=== PATIENT | female | born 1985 | race American Indian/Alaskan Native ===

== ENCOUNTER 2016-04-24 14:22 | Emergency (ER) | payer OTHER ==
[2016-04-24 14:58] VITALS: TEMP 98.2
[2016-04-24] MEDS ORDERED: Sodium Chloride 0.9% 1,000 ML IV ONE (15:02)
[2016-04-24] MEDS ORDERED: Sodium Chloride 0.9% 1,000 ML ONE (15:10)
[2016-04-24 15:31] LABS: BASO % 0.4 % (0.0-2.0); EOS # 0.1 K/uL (0.0-0.7); HEMATOCRIT 34.2 % (34.0-47.0); LYMPH # 1.2 K/uL (1.0-4.3); LYMPH % 16.9 % (20.0-40.0); MEAN CELL VOLUME 72.9 fL (81.0-99.0); MEAN CORPUSCULAR HEMOGLOBIN 24.8 pg (27.0-31.0); MEAN CORPUSCULAR HGB CONC 34.1 g/dL (33.0-37.0); MEAN PLATELET VOLUME 8.7 fL (7.2-11.7); MONO # 0.5 K/uL (0.0-0.8); MONO % 7.2 % (0.0-10.0); NRBC % 0.1 % (0.0-2.0); RED CELL DISTRIBUTION WIDTH 15.9 % (11.5-14.5); WHITE BLOOD COUNT 7.1 K/uL (4.8-10.8)
[2016-04-24 15:36] LABS: RBC URINE < 1 /hpf (0-3); URINE BILIRUBIN NEGATIVE (NEGATIVE); URINE BLOOD 1+ (NEGATIVE); URINE COLOR Straw (YELLOW); URINE GLUCOSE (UA) NORMAL (Normal); URINE KETONE NEGATIVE (NEGATIVE); URINE LEUKOCYTE ESTERASE NEG Leu/uL (Negative); URINE PROTEIN NEGATIVE (NEGATIVE); URINE UROBILINOGEN NORMAL mg/dL (0.2-1.0); WBC URINE 2 /hpf (0-5)
[2016-04-24 15:40] LABS: CHLORIDE 98 mmol/L (98-107)
[2016-04-24 15:41] LABS: POTASSIUM 3.6 mmol/L (3.6-5.2); SODIUM 134 mmol/L (132-148)
[2016-04-24 15:43] LABS: CARBON DIOXIDE 24 mmol/L (22-30); GFR AFRICAN-AMERICAN > 60
[2016-04-24 15:44] LABS: ALB/GLOB RATIO 1.2 (1.0-2.1); ALKALINE PHOSPHATASE 38 U/L (38-126); ALT/SGPT 19 U/L (9-52); AST/SGOT 23 U/L (14-36); BILIRUBIN,TOTAL 0.6 mg/dL (0.2-1.3); BLOOD UREA NITROGEN 9 mg/dL (7-17); CALCIUM 8.6 mg/dl (8.6-10.4); GLUCOSE,RANDOM 80 mg/dL (65-105); TOTAL PROTEIN 6.9 g/dL (6.3-8.3)
--- NOTE | 2016-04-24 15:57 | C.PDOC ---
History Of Present Illness (, 13-weeks, LNMP: 01/21/16) 31-year-old female, presents to the emergency department with complaints of vaginal bleeding. Patient states she developed vaginal bleed three days ago, which was light and stopped, bleeding resumed this morning, resulting in her coming to the ED for evaluation. Patient notes associated mild suprapubic discomfort, and pain diffusely in back. Denies nausea/vomiting, fevers, chills, dizziness, shortness of breath, chest pain, or any other associated symptoms. No other complaints at this time. OBGYN Dr Valdes. Time Seen by Provider: 04/24/16 14:45 Chief Complaint (Nursing): Female Genitourinary History Per: Patient History/Exam Limitations: no limitations Onset/Duration Of Symptoms: Days Current Symptoms Are (Timing): Still Present Severity: Moderate Past Medical History Reviewed: Historical Data, Nursing Documentation, Vital Signs Vital Signs: Last Vital Signs Temp 98.2 F 04/24/16 14:54 Pulse 77 04/24/16 16:55 Resp 16 04/24/16 16:55 BP 99/66 L 04/24/16 16:55 Pulse Ox 99 04/24/16 16:56 - Medical History PMH: No Chronic Diseases Family History: States: Unknown Family Hx - Social History Hx Alcohol Use: No Hx Substance Use: No - Immunization History Hx Tetanus Toxoid Vaccination: No Hx Influenza Vaccination: No Hx Pneumococcal Vaccination: No Review Of Systems Except As Marked, All Systems Reviewed And Found Negative. Constitutional: Negative for: Fever, Chills Cardiovascular: Negative for: Chest Pain, Palpitations Respiratory: Negative for: Shortness of Breath Gastrointestinal: Positive for: Abdominal Pain. Negative for: Nausea, Vomiting Genitourinary: Positive for: Vaginal Bleeding. Negative for: Dysuria, Frequency , Vaginal Discharge Musculoskeletal: Positive for: Back Pain Skin: Negative for: Rash Neurological: Negative for: Weakness, Numbness, Headache, Dizziness Physical Exam - Physical Exam Appears: Well, Non-toxic, No Acute Distress Skin: Warm, Dry, No Rash Head: Atraumatic, Normacephalic Eye(s): bilateral: Normal Inspection, EOMI Nose: Normal Oral Mucosa: Moist Lips: Normal Appearing Neck: Normal ROM Cardiovascular: Rhythm Regular Respiratory: Normal Breath Sounds, No Accessory Muscle Use Gastrointestinal/Abdominal: Soft, No Tenderness, No Guarding, No Rebound Back: No CVA Tenderness, No Vertebral Tenderness, No Paraspinal Tenderness Extremity: Normal ROM Neurological/Psych: Oriented x3, Normal Speech Gait: Steady ED Course And Treatment - Laboratory Results Result Diagrams: 04/24/16 15:27 04/24/16 15:27 Lab Interpretation: No Acute Changes O2 Sat by Pulse Oximetry: 99 Pulse Ox Interpretation: Normal Medical Decision Making Medical Decision Making: Impression: 31y/o F complains of vaginal bleeding since this morning. Diff Dx (includes but not limited to) Spontaneous vs Ectopic Prior Visits Notes and records from previous visits were reviewed. Patient seen in ED on for Pneumonia. Plan: * Type and Screen * Beta HCG, CMP * CBC * IVF, Tylenol * Urinalysis, HCG * US Transvaginal * Reassess and Disposition Progress: Labs and urinalysis reviewed and unremarkable. BHG is >02703 US reviewed Single living fetus with a composite sonographic age of 13 weeks 6 days. Estimated heart rate 148.2 beats per min. 2.8 x 2.0 x 2.4 cm right ovarian cyst. Advise an anomaly screen at 16-18 weeks gestational age. Patient remained afebrile alert and oriented in no acute distress. Advise patient to follow up with real estate agent/broker for further evaluation and repeat lab and US in one week Disposition Counseled Patient/Family Regarding: Need For Followup - Disposition [facility] Disposition: HOME/ ROUTINE Disposition Time: 16:54 Condition: STABLE Additional Instructions: Your ultrasound shows 13 weeks 6 days with heart rate of 148 Please follow up with your ob.refueling ramp attendant in one week for further evaluation and repeat US Instructions: Threatened Miscarriage (ED) - POA Present On Arrival: None - Clinical Impression Clinical Impression: Threatened - Scribe Statement The provider has reviewed the documentation as recorded by the Rosauraiballison Quinteros All medical record entries made by the Rosauraiballison were at my direction and personally dictated by me. I have reviewed the chart and agree that the record accurately reflects my personal performance of the history, physical exam, medical decision making, and the department course for this patient. I have also personally directed, reviewed, and agree with the discharge instructions and disposition.
--- NOTE | 2016-04-24 16:44 | US ---
OB , limited Indication: Bleeding and Comparison: None available Technique: Real-time ultrasound was performed through the pelvis. Findings: There is a single living fetus in breech presentation. Anterior placenta. The placenta is not previa. Cervix length measures approximately 4.8 cm. The right ovary measures approximately 4.6 x 2.8 x 3.5 cm. Right ovarian cyst measures approximately 2.8 x 2.0 x 2.4 cm. Blood flow is demonstrated to the right ovary. The left ovary is not visualized. Measurements and calculations: Fetus has a composite sonographic age of 13 weeks 6 days. This calculation is based on the biparietal diameter, head circumference, abdominal circumference, and femur length. Estimated heart rate 148.2 beats per min. Impression: Single living fetus with a composite sonographic age of 13 weeks 6 days. Estimated heart rate 148.2 beats per min. 2.8 x 2.0 x 2.4 cm right ovarian cyst. Advise an anomaly screen at 16-18 weeks gestational age.
[2016-04-24 16:55] VITALS: BP 99/66; PULSE 77; RESP 16
[2016-04-24 16:56] VITALS: O2SAT 99
== END 2016-04-24 17:29 | disposition home or self-care (01) ==
LOC: C.ER 14:22
DX: O20.0 Threatened abortion (principal); Z3A.13 13 weeks gestation of pregnancy